=== PATIENT | female | born 1980 | race Caucasian/White ===

== ENCOUNTER → 2018-08-02 13:22 | Outpatient (CLI) | payer SELFPAY ==
[2018-08-02 16:21] LABS: Estimated Glomerular Filt Rate > 60.0 mL/min (>60)
== END ==
PROVIDERS: Visit Provider Transplant Surgery
DX: Z00.5 Encounter for examination of potential donor of organ and tissue (principal)
CPT/HCPCS: 82565; 85307; 86900; 86901

== ENCOUNTER 2022-03-20 20:16 | Emergency (ER) | payer OTHER, SELFPAY ==
[2022-03-20 20:23] VITALS: BP 143/91; PULSE 86; RESP 17; TEMP 36.7; O2SAT 99; BMI 35.3
[2022-03-20 21:09] LABS: COVID19 -Nasal RAPID Negative (Negative)
== END 2022-03-20 21:42 | disposition left against medical advice (07) ==
PROVIDERS: Emergency Medicine; Emergency Provider Emergency Medicine
DX: R51.9 Headache, unspecified (principal); M54.2 Cervicalgia; Z20.822 Contact with and (suspected) exposure to COVID-19
CPT/HCPCS: 87635; 99281; C9803